=== PATIENT | male | born 1960 | race American Indian/Alaskan Native ===

== ENCOUNTER 2019-06-10 10:00 | Day surgery (SDC) | payer MEDICARE ==
--- NOTE | 2019-06-10 11:06 | Anesthesia Day of Surgery ---
Anesthesia Day of Surgery - Day of Surgery Patient Examined: Yes Patient H&P Reviewed: Yes Patient is NPO: Yes
--- NOTE | 2019-06-10 11:10 | Anesthesia Consultation ---
Anesthesia Consult and Med Hx Date of service: 06/10/19 - Airway Anesthetic Teeth Evaluation: Good ROM Head & Neck: Adequate Mental/Hyoid Distance: Adequate Mallampati Class: Class II Intubation Access Assessment: Good - Pre-Operative Health Status ASA Pre-Surgery Classification: ASA3 Proposed Anesthetic Plan: General - Pulmonary Hx Smoking: No Hx Respiratory Symptoms: No (Pt is very active and works out at gym; Denies cardiac/pulm sxs) Hx Sleep Apnea: No (MIGUEL ANGEL PRE SCREEN HIGH RISK) - Cardiovascular System Hx Hypertension: Yes (ECHO [id number] EF 35-40%) Hx Heart Attack/AMI: Yes (X 3. NST [id number]) Hx Cardia Arrhythmia: Yes (PVCs. Ischemic cardiomyopathy) Hx Internal Defibrillator: Yes (Implanted [id number] and checked [id number]) - Central Nervous System CVA: Yes (? BROTHER UNSURE , STATES NOT ON BLOOD THINNERS) Hx Psychiatric Problems: Yes (Pt is mentally challenged and hard of hearing. Brother at bedside) - Endocrine Hx Renal Disease: Yes (CKD Stage 2) - Other Systems Hx Cancer: No
[2019-06-10] MEDS ORDERED: ONDANSETRON 4 MG/2 ML INJ IV PRN ×2 (11:13→13:01)
[2019-06-10] MEDS ORDERED: fentaNYL 100 MCG/2 ML INJ IV PRN ×2 (11:13→13:01)
[2019-06-10 11:37] LABS: BUN/Creatinine Ratio 12; Blood Urea Nitrogen 17 mg/dL (9-20); Calcium 9.7 mg/dL (8.4-10.2); Hemolysis Index 12
[2019-06-10] MEDS ORDERED: GENTAMICIN 160 MG in SODIUM CHLORIDE 0.9% 100 ML IV SCH (12:00)
[2019-06-10] MEDS ORDERED: LACTATED RINGERS 1,000 ML IV SCH (12:00)
[2019-06-10] MEDS ORDERED: ceFAZolin/STERILE WATER 2 GM/20 ML SYRINGE IV NR (12:00)
[2019-06-10] MEDS ORDERED: fentaNYL 100 MCG/2 ML INJ ONE (12:10)
[2019-06-10] MEDS ORDERED: propofoL 200 MG/20 ML VIAL IV ONE (12:11)
[2019-06-10] MEDS ORDERED: HYDROmorphone 1 MG/1 ML INJ IV PRN (13:01)
[2019-06-10] MEDS ORDERED: ePHEDrine SULFATE 50 MG/1 ML INJ ONE (13:04)
--- NOTE | 2019-06-10 13:04 | Post Operative Note ---
Date of procedure: 06/10/19 Pre-op diagnosis: inc psa Post-op diagnosis: other (same bladder lesion) Findings: bladder redness Procedure: cysto pus bx Anesthesia: GETA Surgeon: JOEY FITZPATRICK Estimated blood loss: none Pathology: list (bladder prostate) Specimen disposition: to lab Condition: stable Disposition: PACU
--- NOTE | 2019-06-10 13:05 | Discharge Summary ---
Short Stay Discharge Plan Activity: other (no straining ) Weight Bearing Status: Full Weight Bearing Diet: low fat, low cholesterol, low salt Follow up with: RAYMUNDO DEL CID MD [Primary Care Provider] - 7 Days JOEY FITZPATRICK MD [Staff Physician] - 7 Days
[2019-06-10] MEDS ORDERED: WATER FOR IRRIG STERILE 1,500 ML BOTTLE IR ONE (13:07)
[2019-06-10] MEDS ORDERED: LIDOCAINE MPF (2%) 20 MG/1 ML VIAL 5 ML ONE (13:07)
[2019-06-10] MEDS ORDERED: ONDANSETRON 4 MG/2 ML INJ ONE (13:07)
[2019-06-10 14:03] VITALS: BP 119/68
--- NOTE | 2019-06-10 14:03 | Post Anesthesia Evaluation ---
- Post Anesthesia Evaluation Patient Participated: Yes Airway Patent: Yes Stable Respiratory Function: Yes Nausea/Vomiting: No Temp > 96.8F: Yes Pain Manageable: Yes Adequeate Hydration: Yes Anesthesia Complications: No
--- NOTE | 2019-06-10 14:39 | Operative Report ---
PREOPERATIVE DIAGNOSIS: Elevated PSA. POSTOPERATIVE DIAGNOSIS: Elevated PSA with a small prostate and a bladder lesion above the left orifice. PROCEDURE: Flexible and rigid cystoscopy, bladder biopsy, fulguration with transrectal ultrasound biopsy of the prostate. SURGEON: Dr. Ibarra. ANESTHESIA: General. FINDINGS: This is a gentleman who we could not do in the office with large hemorrhoids and not very cooperative. He now presents for treatment. DESCRIPTION OF PROCEDURE: The patient was brought to the operating room and placed on the operating table. Following induction of anesthesia, placed in lithotomy position, prepped and draped in usual sterile fashion. Flexible cystoscopy showed a lesion above the orifice, just a little erythema and little ____. This was biopsied just to be safe. There were no papillary tumors. Transrectal ultrasound measured the gland, approximately 24 grams. Biopsies 6 on the left and 5 on the right were carried out. The patient tolerated the procedure well. No significant complications, brought to recovery in stable condition. JOB# [id number] KALLI/CAMACHO
--- NOTE | 2019-06-10 15:27 | Ultrasound Report ---
Ultrasound Transrectal INDICATION: Elevated PSA. Guidance for prostate biopsy. COMPARISON: None available. FINDINGS: The prostate gland measures 4.2 x 2.8 x 4.0 cm with a volume of 25 cc. Please see the procedure repor t for further evaluation. IMPRESSION: Limited transrectal prostate sonography to guide biopsy. Signer Name: Juan Torrez MD Signed: 06/10/2019 3:23 PM Workstation Name: [id number]
--- NOTE | 2019-06-10 15:30 | XRay Report ---
ABDOMEN 1 VIEW HISTORY: ELEVATED PSA. 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 COMPARISON: None. FINDINGS: Lung bases are clear. Nonobstructive bowel gas pattern. No radiopaque urinary stone disea se. 0.1 min [place]/paint factory worker image. IMPRESSION: Negative abdomen. Signer Name: Reid Arana MD Signed: 06/10/2019 3:25 PM Workstation Name: [id number]
== END 2019-06-10 14:45 | disposition home or self-care (01) ==
LOC: OR 10:00
PROVIDERS: ATTEND Urology
DX: R97.20 Elevated prostate specific antigen [PSA] (principal); I12.9 Hypertensive chronic kidney disease with stage 1 through stage 4 chronic kidney disease, or unspecified chronic kidney disease; N18.2 Chronic kidney disease, stage 2 (mild); I42.9 Cardiomyopathy, unspecified; Z98.890 Other specified postprocedural states; Z88.8 Allergy status to other drugs, medicaments and biological substances; Z79.899 Other long term (current) drug therapy; Z79.82 Long term (current) use of aspirin; Z86.73 Personal history of transient ischemic attack (TIA), and cerebral infarction without residual deficits
CPT/HCPCS: 36415; 52204; 55700; 74018; 76872; 80048; 88305; J0690; J1580; J2405; J2704; J3010; J7120; 88342